=== PATIENT | female | born 1960 | race Caucasian/White ===

== ENCOUNTER → 2016-03-05 | Outpatient (CLI) | payer OTHER ==
[~2016-03-05] MED LIST: ADDERALL 30 MG30 MG PO; CALCIUM 600 +1 EAC1 PO; CENTRUM SILVER1 EAC4 PO; EFFEXOR XR75 MG PO; ESTRACE1 MG PO; HYDROCODONE-APA1 TA1 PO; IBUPROFEN 800800 M1 PO; IRON325 PO; LEXAPRO 10 MG T10 MG PO; NORCO 5-325 TA1 EACH PO; OMEGA 3 1,0001 EACH PO; PROTONIX40 M1 PO; TRAMADOL 50 MG50 MG PO; TYLENOL325 MG PO; VALTREX 500 MG500 MG PO; VALTREX1000 MG PO; ZOFRAN ODT4 MG PO
--- NOTE | ~2016-03-05 | EKG ---
[place] [address] [facility] [place] [address] ELECTROCARDIOGRAM REPORT Name: ERICK CARPIO Room #: REG CLI Giovanni#: [id number] Admission: 03/05/16 Attend Phys: Keith Snow MD Discharge: Date of : 56 Report #: [id number] THIS REPORT FOR: //name// [facility] Test Date: 2016-03-05 Test Time: 06:49:36 Pat Name: ERICK CARPIO Department: Room: Gender: F [employer] Operator: VENKAT : 1960 Requested By: Keith Snow Order Number: [id number] MD: Luis Carlos Davenport Measurements Intervals [place] Rate: 76 P: 52 MT: 178 QRS: 5 QRSD: 107 T: 61 QT: 397 QTc: 447 Interpretive Statements Sinus rhythm RSR' in V1 or V2, probably normal variant No previous ECG available for comparison Electronically Signed On 03-05-2016 8:04:02 SOLAR FABRICATION TECHNICIAN by Luis Carlos Davenport [email or web address] <ELECTRONICALLY SIGNED> By: Luis Carlos Davenport MD, [facility] 03/05/16 [id number] Luis Carlos Davenport MD, FAC /EPI
== END | disposition home or self-care (01) ==
LOC: LITH 06:05
DX: N20.0 Calculus of kidney (principal); F41.9 Anxiety disorder, unspecified; I34.1 Nonrheumatic mitral (valve) prolapse